=== PATIENT | female | born 1980 | race Caucasian/White ===

== ENCOUNTER 2019-09-29 23:22 | Emergency (ER) | payer OTHER ==
[~2019-09-29] VITALS: Ht 175.3 cm; Wt 120.2 kg
[2019-09-29 23:26] VITALS: BP 168/85
[2019-09-30] MEDS ORDERED: LORAZEPAM INJ 2 MG/ML VIAL IM ONE
[2019-09-30] MEDS ORDERED: LORAZEPAM INJ 2 MG/ML VIAL ONE (00:01)
--- NOTE | 2019-09-30 00:10 | NUR ---
Patient discharged to home in stable condition. Written and verbal after care instructions given. Patient verbalizes understanding of instruction. Pt was picked up by and was instructed not to drive.
== END 2019-09-30 00:07 | disposition home or self-care (01) ==
LOC: ER 23:26
DX: F41.0 Panic disorder [episodic paroxysmal anxiety] (principal); Z90.89 Acquired absence of other organs; Z98.890 Other specified postprocedural states
CPT/HCPCS: 96372; 99283; J2060